=== PATIENT | female | born 1965 | race Caucasian/White ===

== ENCOUNTER 2018-03-25 11:08 | Outpatient (CLI) | payer MEDICARE, MEDICAID, SELFPAY ==
[2018-03-25 13:06] LABS: HCT 40.5 % (36.0-46.0); HGB 13.4 g/dL (12.0-15.5); Mean Corp. HGB Concentration 33.1 g/dL (32.0-36.0); Mean Corpuscular Hemoglobin 30.4 pg (27.0-33.0); Mean Corpuscular Volume 91.8 fL (80-95); Mean Platelet Volume 11.3 fL (8.0-11.0); Platelet Count 219 x1000/uL (130-400); RBC 4.41 m/cumm (4.00-5.20); RBC Distribution Width 12.6 % (11.7-14.6); White Blood Cell Count 5.19 k/cumm (4.4-10.8)
[2018-03-25 13:44] LABS: ALT 17 U/L (12-78); AST 13 U/L (15-37); Albumin 3.7 g/dL (3.4-5.0); Alkaline Phosphatase 74 U/L (46-116); Anion Gap 7.1 mmol/L (3-11); BUN 13 mg/dL (7-18); Bilirubin, Total 0.3 mg/dL (0.2-1.0); CO2 28.9 mmol/L (21.0-32.0); CREATININE 0.69 mg/dL (0.55-1.02); Calcium 9.1 mg/dL (8.5-10.1); Chloride 105 mmol/L (98-107); Glucose 77 mg/dL (70-100); Potassium 4.2 mmol/L (3.5-5.1); Sodium 141 mmol/L (136-145); TSH (W/Ref FT4) 1.67 uIU/mL (0.358-3.74); Total Protein 7.1 g/dL (6.4-8.2)
== END 2018-03-25 11:28 ==
PROVIDERS: PCP Family Medicine; Visit Provider Family Medicine
DX: F31.9 Bipolar disorder, unspecified (principal); F99 Mental disorder, not otherwise specified
CPT/HCPCS: 36415; 80053; 85027; 84443

== ENCOUNTER 2020-10-18 16:57 | Outpatient (REF) | payer MEDICARE, MEDICAID, SELFPAY | END 2020-10-18 16:58 | disposition home or self-care (01) | LOC: LBN 16:57 | PROVIDERS: PCP Family Medicine; Visit Provider Family Medicine | DX: R35.0 Frequency of micturition (principal) | CPT/HCPCS: 87086 ==

== ENCOUNTER 2020-12-21 03:35 | Outpatient (CLI) | payer MEDICARE, MEDICAID, SELFPAY ==
[2020-12-21 09:48] LABS: HCT 41.2 % (36.0-46.0); HGB 13.2 g/dL (11.2-15.7); MCH 29.4 pg (27.0-33.0); MCV 91.8 fL (80-95); MPV 11.1 fL (8.0-11.0); Platelet Count 205 10^3/uL (130-400); RBC 4.49 10^6/uL (3.93-5.22); RDW 12.8 % (11.7-14.6); RDW-SD 43.1 fL; WBC 5.96 10^3/uL (4.4-10.8)
[2020-12-21 10:35] LABS: ALT 17 U/L (14-59); AST 13 U/L (15-37); Albumin 3.8 g/dL (3.4-5.0); Alkaline Phosphatase 72 U/L (46-116); Anion Gap 4.4 mmol/L (3-11); BUN 15 mg/dL (7-18); Bilirubin, Total 0.3 mg/dL (0.2-1.0); CO2 32.6 mmol/L (21.0-32.0); CREATININE 0.8 mg/dL (0.55-1.02); Calculated LDL 145 mg/dL (<100); Chloride 104 mmol/L (98-107); Cholesterol 231 mg/dL (<200); Glucose 78 mg/dL (74-106); HDL Cholesterol 67 mg/dL (40-60); Potassium 4.5 mmol/L (3.5-5.1); Sodium 141 mmol/L (136-145); TSH (W/Ref FT4) 1.73 uIU/mL (0.36-3.74); Total Protein 6.8 g/dL (6.4-8.2); Triglyceride 97 mg/dL (<150)
== END 2020-12-21 03:36 | disposition home or self-care (01) ==
LOC: LBO 03:35
PROVIDERS: PCP Family Medicine; Visit Provider Family Medicine
DX: I10 Essential (primary) hypertension (principal); K59.00 Constipation, unspecified
CPT/HCPCS: 36415; 80053; 80061; 85027; 84443

== ENCOUNTER 2024-07-17 01:59 | Outpatient (CLI) | payer MEDICARE, MEDICAID, SELFPAY ==
[2024-07-17 12:42] LABS: Anion Gap 5.7 mmol/L (3-11); BUN 17 mg/dL (7-18); CO2 32.3 mmol/L (21.0-32.0); Calcium 9.5 mg/dL (8.5-10.1); Chloride 104 mmol/L (98-107); Glucose 92 mg/dL (74-106); Potassium 4.4 mmol/L (3.5-5.1); Sodium 142 mmol/L (136-145)
== END 2024-07-17 02:00 | disposition home or self-care (01) ==
LOC: LOS 01:59
PROVIDERS: PCP Nurse Practitioner Family; Visit Provider Nurse Practitioner Family
DX: I10 Essential (primary) hypertension (principal)
CPT/HCPCS: 36415; 80048